=== PATIENT | male | born 1990 | race Caucasian/White ===

== ENCOUNTER 2024-01-02 20:32 | Emergency (ER) | payer SELFPAY ==
--- NOTE | ~2024-01-02 | XR_ITS ---
EXAMINATION: XR knee LT 3V DATE: 01/02/2024 20:55 INDICATION: Left knee injury TECHNIQUE: Anteroposterior, oblique and crosstable lateral views of the left knee were obtained COMPARISON: None. FINDINGS: Alignment is normal. No fracture. Joint spaces appear normal on nonweightbearing imaging. Moderate-s ized left knee joint effusion. Soft tissues are unremarkable. IMPRESSION: 1. Moderate-sized left knee joint effusion. No osseous abnormality. Reviewed, dictated and finalized at location A.
[2024-01-02 20:37] VITALS: BP 116/63; PULSE 92; RESP 18; TEMP 36.7; O2SAT 100
[2024-01-02] MEDS: ACETAMINOPHEN 500 MG TABLET 1000 MG PO (21:22)
[2024-01-02] MEDS: KETOROLAC 30 MG/ML VIAL (*BKC) IM (21:22)
--- NOTE | 2024-01-02 21:26 | ED.LOWEXIN ---
HPI - Extremity Injury (Lower) General Chief Complaint: Extremity Injury, Lower Stated Complaint: left knee pain Time Seen by Provider: 01/02/24 20:41 Source: patient Mode of arrival: wheelchair Limitations: no limitations History of Present Illness HPI Narrative: This is a 33-year-old male that presents to the emergency department after a left knee injury. Reports he hit a golf ball that hit a tree and bounced off the tree and hit his knee. Reports swelling and pain to the area. Reports decreased ROM due to pain. Denies numbness. Related Data Allergies Allergy/AdvReac Type Severity Reaction Status Date / Time No Known Allergies Allergy Unverified 01/02/24 20:32 Review of Systems Review of Systems: CONSTITUTIONAL: Denies fever MUSCULOSKELETAL: Reports joint pain, and myalgia. NEUROLOGIC: Denies numbness All systems reviewed & are unremarkable except as noted in HPI and below PMFSH Past Medical History Medical History (Updated 01/02/24 @ 21:37 by Viktoria Ramirez PA-C) No active medical problems Social History Social History (Updated 01/02/24 @ 21:37 by Viktoria Ramirez PA-C) Substance use: never Exam Narrative: GENERAL: Well-appearing, well-nourished, and in no acute distress. HEAD: Normocephalic, atraumatic. EYES: EOMI. EXTREMITIES: Normal range of motion. Left knee contusion anteromedially. Normal DP pulse. Normal sensation SKIN: Warm, dry, no rash. NEURO: No focal deficits. Alert and oriented x3. PSYCH: Normal mood and affect Course Course Emergency Course: Patient updated on workup and agrees with plan of care Vital Signs Vital signs: Vital Signs Temperature 98.1 F 01/02/24 20:37 Pulse Rate 92 01/02/24 20:37 Respiratory Rate 18 01/02/24 20:37 Blood Pressure 116/63 01/02/24 20:37 Pulse Oximetry 100 01/02/24 20:37 Oxygen Delivery Room Air 01/02/24 20:37 Temperature 98.1 F 01/02/24 20:37 Pulse Rate 92 01/02/24 20:37 Respiratory Rate 18 01/02/24 20:37 Blood Pressure 116/63 01/02/24 20:37 Pulse Oximetry 100 01/02/24 20:37 Oxygen Delivery Room Air 01/02/24 20:37 MDM - Extremity Injury (Lower) MDM Narrative Medical decision making narrative: Patient presents to the emergency department after left knee injury today. Reports hitting golf ball and tree and bouncing back and hitting his knee. Swelling and pain in the area. He is neurovascularly intact. Left knee x-ray without acute osseous abnormalities. Does show joint effusion. Patient placed in Bigg wrap and given crutches. Instructed to rest, ice and take [id number] pain medication as needed. He will be given follow-up with Orthopedics. He was given warnings to return to the ER Differential Diagnosis Differential diagnosis: Likely acute internal derangement of knee and other (Contusion, patellar fracture) Imaging Data Radiologist's impression: ITS Impressions Knee X-Ray 01/02/24 20:59 IMPRESSION: 1. Moderate-sized left knee joint effusion. No osseous abnormality. Critical Care Time Critical Care Time Critical Care Time: No Discharge Plan Discharge Clinical Impression: Contusion of knee, left Qualifiers: Encounter type: initial encounter Qualified Code(s): S80.02XA - Contusion of left knee, initial encounter Patient Disposition: Home, Self-Care Condition: Stable Instructions: Contusion in Adults (ED), Knee Pain (ED) Additional Instructions: Return to the ER if you experience fever, redness and swelling of your extremity, numbness or any other symptoms that are concerning to you Wear BIGG wrap and use crutches. No weight on the affected leg. Ice and elevate extremity. Pain medication as needed and directed. Follow up with orthopedics for further care. Follow-up/Referrals: Varinder Corona MD [Physician] - PHYSICIAN,[facility] [Primary Care Provider] -
== END 2024-01-02 22:00 | disposition home or self-care (01) ==
PROVIDERS: Emergency Provider Physician Assistant
DX: S80.02XA Contusion of left knee, initial encounter (principal); W21.04XA Struck by golf ball, initial encounter
CPT/HCPCS: 73562; 96372; 99283; A9270; J1885